=== PATIENT | female | born 1985 | race Caucasian/White ===

== ENCOUNTER → 2018-03-08 | Outpatient (CLI) | payer MEDICAID ==
[2018-03-08 12:37] LABS: A TYPE INFLUENZA AG NEGATIVE (NEGATIVE); B INFLUENZA AG NEGATIVE (NEGATIVE)
== END ==
LOC: OD 11:41
PROVIDERS: ATTEND Family Medicine
DX: R68.89 Other general symptoms and signs (principal)
CPT/HCPCS: 87804

== ENCOUNTER 2019-04-29 13:10 | Emergency (ER) | payer SELFPAY ==
[2019-04-29] MEDS ORDERED: NORMAL SALINE 1000 ML 1,000 ML IV ONE (13:48)
[2019-04-29] MEDS ORDERED: ONDANSETRON HCL INJ/PF 4 MG/2 ML SDV IV ONE (13:48)
[2019-04-29] MEDS ORDERED: KETOROLAC TROMETHAMINE INJ/PF 30 MG/1 ML SDV IV ONE (13:49)
--- NOTE | 2019-04-29 13:51 | ER Document Report ---
ED Medical Screen (RME) - General Chief Complaint: Nausea Stated Complaint: VOMITING Time Seen by Provider: 04/29/19 13:42 Primary Care Provider: CHADD VELAZQUEZ DO [Primary Care Provider] - Follow up as needed Notes: Patient presents complaining of nausea vomiting diarrhea over the past 4 days although has not had any vomiting or diarrhea today. Patient complains of congestion headache and nausea today. I have greeted and performed a rapid initial assessment of this patient. A comprehensive ED assessment and evaluation of the patient, analysis of test results and completion of the medical decision making process will be conducted by additional ED providers. TRAVEL OUTSIDE OF THE [place] IN LAST 30 DAYS: No - Related Data Allergies/Adverse Reactions: No Known Allergies Allergy (Verified 07/22/15 11:29) Past Medical History - Social History Frequency of alcohol use: None Drug Abuse: None Past Surgical History: Reports: Hx Oral Surgery - Immunizations Hx Diphtheria, Pertussis, Tetanus Vaccination: Yes - given with PNC Physical Exam - Vital signs Vitals: Temp Pulse Resp BP Pulse Ox 97.8 F 74 16 117/75 100 04/29/19 13:13 04/29/19 13:13 04/29/19 13:13 04/29/19 13:13 04/29/19 13:13 - General General appearance: Appears well, Alert In distress: None Course - Vital Signs Vital signs: Temp Pulse Resp BP Pulse Ox 97.8 F 74 16 117/75 100 04/29/19 13:13 04/29/19 13:13 04/29/19 13:13 04/29/19 13:13 04/29/19 13:13 Doctor's Discharge - Discharge Referrals: CHADD VELAZQUEZ DO [Primary Care Provider] - Follow up as needed
--- NOTE | 2019-04-29 14:07 | ER Document Report ---
ED GI/ - General Chief Complaint: Nausea Stated Complaint: VOMITING Time Seen by Provider: 04/29/19 13:42 Primary Care Provider: CHADD VELAZQUEZ DO [NO LOCAL MD] - Follow up as needed TRAVEL OUTSIDE OF THE [place] IN LAST 30 DAYS: No - HPI Notes: 04/29/19 14:05 CHIEF COMPLAINT: Vomiting and diarrhea for 5 days HPI: 33-year-old female presenting to the emergency department complaining of vomiting and diarrhea over the last 4 to 5 days. Had some chills initially no chills or fever in the last 48 hours. Has not had any vomiting or diarrhea today. Denies abdominal pain. Patient states that she has been able to tolerate oral fluids today. Patient wanted to know if she would be able to go back to work tomorrow ROS: See HPI - all other systems were reviewed and are otherwise negative Constitutional: no fever or recent illness Eyes: no drainage, no blurred vision ENT: no runny nose, no sore throat Cardiovascular: no chest pain Resp: no SOB, no cough GI: + vomiting, + diarrhea : no dysuria Integumentary: no rash Allergy: no hives Musculoskeletal: no extremity pain or swelling Neurological: no numbness/tingling, no weakness MEDICATIONS: I agree with the patient medications as charted by the RN. ALLERGIES: I agree with the allergies as charted by the RN. PAST MEDICAL HISTORY/PAST SURGICAL HISTORY: Reviewed and agree as charted by RN. SOCIAL HISTORY: Reviewed and agree as charted by RN. FAMILY HISTORY: No significant familial comorbid conditions directly related to patient complaint EXAM: Reviewed vital signs as charted by RN. CONSTITUTIONAL: Alert and oriented and responds appropriately to questions. Well-appearing; well-nourished HEAD: Normocephalic; atraumatic EYES: PERRL; Conjunctivae clear, sclerae non-icteric ENT: normal nose; no rhinorrhea; very slightly dry mucous membranes; pharynx without lesions noted NECK: Supple without meningismus; non-tender; no cervical lymphadenopathy, no masses CARD: RRR; no murmurs, no clicks, no rubs, no gallops; symmetric distal pulses RESP: Normal chest excursion without splinting or tachypnea; breath sounds clear and equal bilaterally; no wheezes, no rhonchi, no rales, ABD/GI: Normal bowel sounds; non-distended; soft, non-tender, no rebound, no guarding; no palpable organomegaly or masses. BACK: The back appears normal and is non-tender to palpation, there is no CVA tenderness EXT: Normal ROM in all joints; non-tender to palpation; no cyanosis, no effusions, no edema SKIN: Normal color for age and race; warm; dry; good turgor; no acute lesions noted NEURO: Moves all extremities equally; Motor and sensory function intact PSYCH: The patient's mood and manner are appropriate. Grooming and personal hygiene are appropriate. - Related Data Allergies/Adverse Reactions: No Known Allergies Allergy (Verified 07/22/15 11:29) Past Medical History - Social History Smoking Status: Never Smoker Frequency of alcohol use: None Drug Abuse: None Family History: Reviewed & Not Pertinent, Malignancy Patient has suicidal ideation: No Patient has homicidal ideation: No Past Surgical History: Reports: Hx Oral Surgery - Immunizations Hx Diphtheria, Pertussis, Tetanus Vaccination: Yes - given with PNC Physical Exam - Vital signs Vitals: Temp Pulse Resp BP Pulse Ox 97.8 F 74 16 117/75 100 04/29/19 13:13 04/29/19 13:13 04/29/19 13:13 04/29/19 13:13 04/29/19 13:13 Course - Re-evaluation Re-evalutation: 04/29/19 14:40Patient does not show evidence of ketonuria suggesting significant dehydration. As patient has no abdominal pain on exam, no vomiting or diarrhea today. Patient is afebrile. Will discharge home with a prescription for Zofran in case nausea reoccurs. Patient may return to work as long as she is symptom- free - Vital Signs Vital signs: Temp Pulse Resp BP Pulse Ox 97.8 F 74 16 117/75 100 04/29/19 13:13 04/29/19 13:13 04/29/19 13:13 04/29/19 13:13 04/29/19 13:13 - Laboratory Laboratory results interpreted by me: 04/29/19 14:08 Urine Blood SMALL H Urine Ascorbic Acid 40 H Discharge - Discharge Clinical Impression: Nausea vomiting and diarrhea Condition: Good Disposition: HOME, SELF-CARE Additional Instructions: Take Zofran for any recurrent nausea or vomiting issues. As long as you are symptom-free you may return to work. Continue to push fluids at home so that you rehydrate Prescriptions: Ondansetron [Zofran Odt 4 mg Tablet] 1 - 2 tab PO Q4H PRN #15 tab.rapdis PRN Reason: For Nausea/Vomiting Forms: Return to Work Referrals: CHADD VELAZQUEZ DO [NO LOCAL MD] - Follow up as needed
[2019-04-29 14:35] LABS: APPEARANCE,URINE CLEAR; BILIRUBIN,URINE NEGATIVE (NEGATIVE); COLOR,URINE YELLOW; GLUCOSE, URINE NEGATIVE (NEGATIVE); KETONES,URINE NEGATIVE (NEGATIVE); LEUKOCYTE ESTERASE,URINE NEGATIVE (NEGATIVE); NITRITE,URINE NEGATIVE (NEGATIVE); PROTEIN,URINE NEGATIVE (NEGATIVE); URINE SPECIFIC GRAVITY 1.027; UROBILINOGEN,URINE NEGATIVE mg/dL (<2.0)
[2019-04-29 14:55] VITALS: BP 109/73
== END 2019-04-29 14:52 | disposition home or self-care (01) ==
LOC: ER 13:10
DX: R11.2 Nausea with vomiting, unspecified (principal); R19.7 Diarrhea, unspecified
CPT/HCPCS: 81001; 99284